=== PATIENT | female | born 1960 | race Caucasian/White ===

== ENCOUNTER 2018-09-05 05:27 | Day surgery (SDC) | payer BC ==
[~2018-09-05] VITALS: Ht 167.6 cm; Wt 79.4 kg
[~2018-09-05 05:27] MED LIST: ACCUNEB SO1.25 MG/1 INH; ACETAMINOPHEN325 M1; ACTIVELLA1 TAB OR; ALBUTEROL INH; ASPIR 8181 MG PO; HYDROXYCHLOROQ200 M1 PO; LORTAB 7.5/5001 TA3; NORCO 5-325 TA1 EACH PO; OMEGA-31000 M1 PO; PERCOCET 5-3251 EACH OR; PRILOSEC 20 MG20 MG PO; PROBIOTIC1 EAC1 PO; PSEUDOEPHEDRINE30 MG PO; STOOL SOFTENER1 EACH PO; SUDAFED30 MG PO; VICODIN 5-5001 EACH; VITAMIN D-32000 UNIT PO; [UNRECOGNIZED DRUG - CODE] PO; [UNRECOGNIZED DRUG - OTHER] PO; [UNRECOGNIZED DRUG - OTHER] PO
[2018-09-05 09:36] VITALS: BP 131/81
--- NOTE | 2018-09-12 10:20 | O ---
[address] [address] OPERATIVE REPORT Name: ISABELLA MIRANDA Room #: DEP [facility].#: [id number] Admission: 09/05/18 Attend Phys: Ramirez Harrison MD Discharge: 09/05/18 Date of : 62 Report #: [id number] THIS REPORT FOR: //name// CC: Mi Harrison DATE OF SERVICE: 09/05/2018 SERVICE: Orthopedics. FACILITY: [facility]. SURGEON: Ramirez Harrison MD DUMPSTER OPERATOR: None. PREOPERATIVE DIAGNOSES: 1. Left hip pain. 2. Left hip labral tear. 3. Left hip impingement syndrome. 4. Left hip trochanteric bursitis. POSTOPERATIVE DIAGNOSES: 1. Left hip pain. 2. Left hip labral tear. 3. Left hip impingement syndrome. 4. Left hip trochanteric bursitis. PROCEDURE: 1. Left hip arthroscopic labral repair. 2. Left hip arthroscopic extraarticular subspine acetabuloplasty. 3. Left hip endoscopic trochanteric bursectomy. COMPLICATIONS: None. DRAINS: None. SPECIMENS: None. ANESTHESIA TYPE: General with regional. FINDINGS: 1. Chondral wave sign with chondral labral junction disruption. Labral repair performed with Lydia CinchLock suture anchor x 2. 2. Extensive and significant intraarticular synovitis noted. 3. Mild femoral head articular cartilage pathology, partial thickness. [address] [address] OPERATIVE REPORT Name: ISABELLA MIRANDA Room #: DEP [facility]#: [id number] Admission: 09/05/18 Attend Phys: Ramirez Harrison MD Discharge: 09/05/18 Date of : 62 Report #: [id number] 4. Intact gluteus medius and minimus tendon insertion with trochanteric bursectomy performed. HISTORY: The patient is a 57-year-old female who has been treated conservatively for an extended period of time for chronic persistent left hip pain. She had both intra-articular and peritrochanteric symptoms. She had been receiving image-guided injections as well as physical therapy modalities, soft tissue management and oral medications, which were providing partial, but ultimately insufficient relief. She had MRI, which showed a labral tear. X-rays showed a crossover sign secondary to a prominent anterior inferior iliac spine/anterior column of the acetabulum. There was no significant Cam deformity. She had a normal alpha angle. She had no signs of arthritis on both x-ray and the MRI with a Tonnis grade of 0. She had trochanteric symptoms as well and had previous temporary relief with trochanteric injections. We had discussion about treatment options and she wished to go forward with definitive surgical treatment. Risks, benefits, alternatives and indications for surgery were discussed with her in detail. Risks include but not limited to pain, bleeding, infection, injury to nerves or blood vessels, persistent pain despite surgical intervention, failure of any repairs, reconstructions, progression of any preexisting chondral injury, stiffness, need for further surgery as well as complications related to anesthesia such as stroke, heart attack, pulmonary complications, thromboembolic disease and . Despite these risks, she wished to proceed. PROCEDURE IN DETAIL: After left lower extremity was correctly identified in the preoperative holding as operative extremity, the patient underwent placement of single shot regional nerve block by anesthesia team. She was then taken to the operating room and placed supine on operating table. General anesthesia was induced without complication. She has had appropriate prophylactic antibiotics at appropriate time. We mapped out the femoral head and neck junction under live fluoroscopy. The femoral head and neck junction was evaluated and was confirmed to not have any evidence of Cam deformity. Left leg was then prepped and draped in standard sterile fashion. Timeout procedure performed. Traction was applied to the left lower extremity. Total traction time was approximately 54 minutes. Anterolateral viewing portal was established under fluoroscopic guidance, then anteromedial portal established as well. There was significant amount of intense synovitis noted. There was also blood clot within the hip joint and some thickened synovial fluid in the posterior aspect of the joint. The transverse capsulotomy was performed. Then, the hematoma and synovial fluid was resected from the hip with the shaver. There were also two small fragments of articular cartilage that had flaked off of the femoral head, where there was a partial thickness femoral head dome articular cartilage lesion. There was fraying of the labrum throughout the anterior portion of it and there was a chondral wave sign that was present. The capsule was reflected off the dorsal side of the labrum allowing exposure of the extraarticular [address] [address] OPERATIVE REPORT Name: ISABELLA MIRANDA Room #: DEP [facility] Gerry#: [id number] Admission: 09/05/18 Attend Phys: Ramirez Harrison MD Discharge: 09/05/18 Date of : 62 Report #: [id number] impingement lesion on the acetabulum and a subspine recession was performed with the bur. The acetabular rim was then abraded gently with the bur as well to generate a fresh surface for labral refixation and then labral repair was performed to stabilize both the labrum and the chondral wave sign. A total of two anchors were placed and good secure labral repair and a fixation was felt to be achieved. At this point, a transverse capsulotomy was closed with a total of three #2 Vicryl sutures. The leg was placed into extension after capsular closure for the trochanteric bursectomy. Under fluoroscopic guidance, the peritrochanteric space was entered with a new portal established and then a shaver was brought in through the previous anterolateral portal and a thorough trochanteric bursectomy was performed. The vastus lateralis was normal. The gluteus wiliam tendon was normal. The gluteus medius and minimus tendons were normal in their insertion, but there was thickened bursa, which was resected without difficulty. After this was completed, final photographs were taken. Instruments were removed. The effusion was drained. Portal sites were closed, sterile dressings applied. The patient was awakened from anesthesia and taken to recovery room in stable condition. There were no complications and all counts were recorded as correct. <ELECTRONICALLY SIGNED> By: Ramirez Harrison MD 09/12/18 1020 [id number] Ramirez Harrison MD /nt
== END 2018-09-05 13:48 | disposition home or self-care (01) ==
LOC: TBA 05:27 → OR 05:27
DX: S73.102A Unspecified sprain of left hip, initial encounter (principal); M25.852 Other specified joint disorders, left hip; M70.62 Trochanteric bursitis, left hip; K21.9 Gastro-esophageal reflux disease without esophagitis; J45.909 Unspecified asthma, uncomplicated; F32.9 Major depressive disorder, single episode, unspecified; F41.9 Anxiety disorder, unspecified; Z86.73 Personal history of transient ischemic attack (TIA), and cerebral infarction without residual deficits; Z87.891 Personal history of nicotine dependence; Z87.442 Personal history of urinary calculi; Z90.49 Acquired absence of other specified parts of digestive tract; Z98.890 Other specified postprocedural states; Z88.8 Allergy status to other drugs, medicaments and biological substances; Z79.899 Other long term (current) drug therapy; Z79.82 Long term (current) use of aspirin; X58.XXXA Exposure to other specified factors, initial encounter; Y93.89 Activity, other specified; Y92.89 Other specified places as the place of occurrence of the external cause; Y99.8 Other external cause status
CPT/HCPCS: 50010; 50101; 50386; 51538; 55430; 56524; 56525; 56527; 57092; 57103; 62110; 62900; 70005